=== PATIENT | male | born 1945 | race African-American/Black ===

== ENCOUNTER 2020-07-06 12:47 | Emergency (ER) | payer MEDICARE, OTHER ==
[~2020-07-06] VITALS: Ht 172.7 cm; Wt 103.0 kg
[2020-07-06] MEDS ORDERED: KETOROLAC 30MG/ML VIAL IM ONE (13:30)
[2020-07-06 13:52] VITALS: BP 152/79
== END 2020-07-06 14:01 | disposition home or self-care (01) ==
LOC: ER 13:12
DX: L25.9 Unspecified contact dermatitis, unspecified cause (principal); L70.8 Other acne
CPT/HCPCS: 96372; 99283; J1885